=== PATIENT | female | born 1995 | race Caucasian/White ===

== ENCOUNTER 2017-02-15 19:32 | Emergency (ER) | payer MEDICAID ==
[~2017-02-15] VITALS: Ht 157.5 cm; Wt 50.8 kg
[2017-02-15] MEDS ORDERED: birth control pills (20:00)
[2017-02-15 20:18] LABS: ASPARTATE AMINO TRANSFERASE 17 U/L (15-37); BLOOD UREA NITROGEN 10 mg/dL (7-18)
[2017-02-15 20:43] LABS: PATH.CAST-FLAG NOT PRESENT; SPERM-FLAG NOT PRESENT; SRC-FLAG NOT PRESENT; XTAL-FLAG NOT PRESENT; YLC-FLAG NOT PRESENT
[2017-02-15 21:15] VITALS: BP 112/62
== END 2017-02-15 21:35 | disposition home or self-care (01) ==
LOC: ED 21:00
DX: N30.00 Acute cystitis without hematuria (principal); K59.00 Constipation, unspecified
CPT/HCPCS: 36415; 74020; 76830; 80053; 81001; 83690; 84703; 85025; 99285

== ENCOUNTER 2019-01-29 09:39 | Emergency (ER) | payer MEDICAID ==
[~2019-01-29] VITALS: Ht 157.5 cm; Wt 48.9 kg
[~2019-01-29 09:39] MED LIST: birth control pills
[2019-01-29 09:41] VITALS: BP 107/65
[2019-01-29 10:25] LABS: CULTURE INDICATED? YES; MICROSCOPIC AUTO
[2019-01-29] MEDS ORDERED: PHENAZOPYRIDINE 200 MG TABLET PO ONE (10:30)
[2019-01-29] MEDS ORDERED: DEXAMETHASONE 4 MG TABLET PO ONE (10:30)
[2019-01-29] MEDS ORDERED: DEXAMETHASONE 4 MG TABLET ONE (11:01)
[2019-01-29] MEDS ORDERED: PHENAZOPYRIDINE 200 MG TABLET ONE (11:01)
== END 2019-01-29 11:23 | disposition home or self-care (01) ==
LOC: ED 11:00
DX: J02.9 Acute pharyngitis, unspecified (principal); N30.00 Acute cystitis without hematuria
CPT/HCPCS: 81001; 87081; 87086; 87880; 99283

== ENCOUNTER 2020-09-03 02:21 | Emergency (ER) | payer MEDICAID ==
[~2020-09-03] VITALS: Ht 152.4 cm; Wt 56.0 kg
[2020-09-03 02:25] VITALS: BP 112/59
--- NOTE | 2020-09-03 02:50 | NUR ---
CC OF R SIDED FACIAL SWELLING ON CHEEK UP TO EYE, LIP AND TONGUE, AND DOWN TO NECK THAT HAS WORSENED OVER LAST 3 DAYS. PT HAS SEEN DENTIST FOR ABSCESS AND PRESCRIBED PENICILLIN, SYMPTOMS WORSENED AND ANTIBIOTICS WERE CHANGED TO CEFTRIAXONE WITH SYMPTOMS NOT IMPROVING. PT REPORTS 7/10 PAIN. PT MAINTAINING AIRWAY, CLEAR SPEECH, NO DROOLING. 99% RA ON PULSE OX. FRIEND AT BEDSIDE
[2020-09-03] MEDS ORDERED: MORPHINE SULFATE 4 MG/ML, 1ML IVPush ONE (03:30)
[2020-09-03] MEDS ORDERED: CLINDAMYCIN PMX 300MG/50ML 50 ML IV ONE (03:30)
[2020-09-03] MEDS ORDERED: ONDANSETRON 2MG/ML, 2ML IVPush ONE (03:30)
[2020-09-03] MEDS ORDERED: ONDANSETRON 2MG/ML, 2ML ONE (03:32)
[2020-09-03] MEDS ORDERED: MORPHINE SULFATE 4 MG/ML, 1ML ONE (03:32)
[2020-09-03 03:37] LABS: ANION GAP 7 mmol/L (5-15); CALCIUM 8.8 mg/dL (8.5-10.1); CHLORIDE 109 mmol/L (98-107); CREATININE 0.73 mg/dL (0.55-1.02)
[2020-09-03 03:38] LABS: BASOPHILS % (AUTO) 1 % (0-1); EOSINOPHILS % (AUTO) 1 % (1-7); LYMPHOCYTES % (AUTO) 25 % (22-44); MEAN CORPUSCULAR HEMOGLOBIN 29.7 pg (27.0-34.8); MEAN CORPUSCULAR HGB CONC 33.1 g/dL (32.4-35.8); MEAN PLATELET VOLUME 7.7 fL (7.4-10.4); MONOCYTES % (AUTO) 7 % (2-9); NEUTROPHILS % (AUTO) 65 % (42-75); PLATELET COUNT 277 x10^3/uL (130-400); RED BLOOD COUNT 4.77 x10^6/uL (3.82-5.3); RED CELL DISTRIBUTION WIDTH 12.5 % (9.6-15.2)
[2020-09-03 03:46] LABS: MD NO
--- NOTE | 2020-09-03 03:50 | NUR ---
PT REPORTS RELIEF OF PAIN AFTER MORPHINE.
[2020-09-03] MEDS ORDERED: OMNIPAQUE 350 MG/ML, 75ML BOTTLE ONE (03:58)
--- NOTE | 2020-09-03 04:30 | NUR ---
PT REQUESTING WATER. PENDING CT RESULTS, PT EDUCATED ON BEING NPO, VERBALIZES UNDERSTANDING
--- NOTE | 2020-09-03 05:13 | NUR ---
PT UP TO RESTROOM, AMBULATES WITH STEADY GAIT
== END 2020-09-03 06:11 | disposition home or self-care (01) ==
LOC: ED 05:55
DX: K08.89 Other specified disorders of teeth and supporting structures (principal); L03.211 Cellulitis of face; R51.9 Headache, unspecified; R22.0 Localized swelling, mass and lump, head
CPT/HCPCS: 36415; 70487; 80048; 85025; 96365; 96366; 96375; 99285; J2270; J2405; Q9967

== ENCOUNTER 2021-03-02 20:10 | Emergency (ER) | payer BC, MEDICAID ==
[~2021-03-02] VITALS: Ht 157.5 cm; Wt 57.2 kg
[2021-03-02 20:13] VITALS: BP 119/56
[2021-03-02 21:03] LABS: HCG UR SG 1.005 (1.003-1.030)
[2021-03-02 21:05] LABS: MICROSCOPIC INDICATED
--- NOTE | 2021-03-02 22:12 | NUR ---
"I HAVE LIKE A UTI OR KIDNEY INFECTION, I WAS PEEING BLOOD" PT REPORTS BLOOD IN URINE ABOUT 1 HOUR AGO, C/O PAIN WITH URINATION AND CONSTANT PAIN IN URETHRA, DENIES FLANK OR ABD PAIN.
[2021-03-02] MEDS ORDERED: CEFDINIR 300 MG CAPSULE ONE (22:24)
[2021-03-02] MEDS ORDERED: HYDROcodone/APAP 5/325 TABLET ONE (22:25)
[2021-03-02] MEDS ORDERED: CEFDINIR 300 MG CAPSULE PO ONE (22:30)
[2021-03-02] MEDS ORDERED: HYDROcodone/APAP 5/325 TABLET PO ONE (22:30)
== END 2021-03-02 22:41 | disposition home or self-care (01) ==
LOC: ED 22:00
DX: N30.01 Acute cystitis with hematuria (principal)
CPT/HCPCS: 81001; 81025; 87077; 87086; 87147; 87186; 99283